=== PATIENT | male | born 1990 | race Asian ===

== ENCOUNTER 2016-07-24 11:02 | Inpatient (IN) | payer MEDICARE, MEDICAID ==
[~2016-07-24] VITALS: Ht 165.1 cm; Wt 94.9 kg
[~2016-07-24 11:02] MED LIST: DIVA500T35 PO; DIVA500T52 PO; HALO10 PO; HALO10TA15 PO; QUET200T PO; QUET300T2 PO
[2016-07-24 11:58] LABS: BASOPHILS % (AUTO) 0.4 % (0.0-2.0); EOSINOPHILS % (AUTO) 0.5 % (1.0-6.0); HEMATOCRIT 40.9 % (41-53); HEMOGLOBIN 13.5 g/dL (13.5-17.5); LYMPHOCYTES % (AUTO) 17.5 % (22.0-44.0); MEAN CORPUSCULAR HEMOGLOBIN 27.5 pg (26.0-34.0); MEAN CORPUSCULAR HGB CONC 32.9 G/dL (31.0-37.0); MEAN CORPUSCULAR VOLUME 83 fL (80-100); MONOCYTES # (AUTO) 0.9 K/uL (0.1-1.0); MONOCYTES % (AUTO) 7.7 % (2.0-9.0); NEUTROPHILS # (AUTO) 8.6 K/uL (1.8-7.7); NEUTROPHILS % (AUTO) 73.9 % (40.0-70.0); PLATELET COUNT (AUTO) 319 K/uL (150-450); RED CELL DISTRIBUTION WIDTH 13.5 % (11.5-14.5); WHITE BLOOD COUNT (AUTO) 11.6 K/uL (4.5-11.0)
[2016-07-24 12:01] LABS: ANION GAP 9 mmol/L (8-16); CALCIUM, TOTAL 9.2 mg/dL (8.8-10.5); CARBON DIOXIDE 26 mmol/L (22-29); CHLORIDE 102 mmol/L (98-107); CREATININE 0.59 mg/dL (0.60-1.30); GLOMERULAR FILTR. RATE CALC > 60 mL/min (>60); POTASSIUM 3.6 mmol/L (3.5-5.1); SODIUM SERUM 137 mmol/L (136-145); UREA NITROGEN, BLOOD 14 mg/dL (7-18)
[2016-07-24 12:08] LABS: ALANINE AMINOTRANSFERASE 21 U/L (12-78); ALBUMIN 3.8 g/dL (3.4-5.0); ASPARTATE AMINOTRANSFERASE 21 U/L (15-37); BILIRUBIN,TOTAL 0.4 mg/dL (0.1-1.0); TOTAL PROTEIN, SERUM 8.2 g/dL (6.4-8.2)
[2016-07-24] MEDS ORDERED: HALOPERIDOL LACTATE 5 MG/ML VIAL IM ONE (13:30)
[2016-07-24] MEDS ORDERED: DiphenhydrAMINE HCL 50 MG/ML VIAL IM ONE (13:30)
[2016-07-24] MEDS ORDERED: LORazepam 2 MG/ML VIAL IM ONE (13:30)
[2016-07-24 16:33] VITALS: BP 111/65
[2016-07-24] MEDS: DIVALPROEX SODIUM 500 MG ER TABLET PO SCH (17:00)
[2016-07-24] MEDS ORDERED: INFLUENZA VIRUS VACCINE QVS 2016-17 (3YR+)/PF 60 MCG/0.5 ML SYRINGE IM ONE (17:45)
[2016-07-24] MEDS: HALOPERIDOL 10 MG TABLET PO SCH (21:00)
[2016-07-24] MEDS: QUEtiapine FUMARATE 300 MG TABLET PO SCH (21:00)
[2016-07-25 06:41] VITALS: BP 134/82
[2016-07-25 08:16] VITALS: BP 98/58
[2016-07-25] MEDS: LORazepam 2 MG TABLET PO PRN ×2 (09:41→17:12)
[2016-07-25] MEDS: QUEtiapine FUMARATE 300 MG TABLET PO SCH ×2 (09:41→20:57)
[2016-07-25] MEDS: DIVALPROEX SODIUM 500 MG ER TABLET PO SCH ×2 (09:41→17:12)
[2016-07-25] MEDS: HALOPERIDOL 5 MG TABLET PO PRN ×2 (09:41→17:13)
[2016-07-25] MEDS ORDERED: IBUPROFEN 600 MG TABLET PO PRN (11:30)
[2016-07-25] MEDS ORDERED: BACITRACIN 28.4 GM OINTMENT TP PRN (11:30)
[2016-07-25] MEDS ORDERED: CloNIDine HCL 0.1 MG TABLET PO PRN (11:30)
[2016-07-25] MEDS ORDERED: ALBUTEROL SULFATE HFA 90 MCG/PUFF 8 GM INHALER IH PRN (11:30)
[2016-07-25] MEDS ORDERED: BENZOCAINE/MENTHOL LOZENGE MM PRN (11:30)
[2016-07-25] MEDS ORDERED: ONDANSETRON HCL 4 MG TABLET PO PRN (11:30)
[2016-07-25] MEDS ORDERED: ACETAMINOPHEN 325 MG TABLET PO PRN (11:30)
[2016-07-25] MEDS ORDERED: MAGNESIUM HYDROXIDE SUSPENSION 30 ML UDCUP PO PRN (11:30)
[2016-07-25] MEDS ORDERED: PETROLATUM,WHITE 71 GM JELLY TP PRN (11:30)
[2016-07-25] MEDS ORDERED: LOPERAMIDE HCL 2 MG CAPSULE PO PRN (11:30)
[2016-07-25] MEDS ORDERED: MAG HYDROX/AL HYDROX/SIMETH ES 30 ML SUSPENSION UDCUP PO PRN (11:30)
[2016-07-25 16:17] VITALS: BP 127/69
[2016-07-25] MEDS: NYSTATIN 15 GM POWDER BOTTLE TP SCH (17:21)
[2016-07-25] MEDS: HALOPERIDOL 10 MG TABLET PO SCH (20:57)
[2016-07-26 05:35] VITALS: BP 134/70
[2016-07-26 08:16] VITALS: BP 145/89
[2016-07-26 08:35] LABS: HEMOGLOBIN A1C 5.4 % (4.5-6.2)
[2016-07-26 08:55] LABS: CHOL/HDL RATIO 3.8 (4.2-7.3); THYROID STIMULATING HORMONE 1.25 uIU/mL (0.36-3.74)
[2016-07-26] MEDS: NICOTINE 21 MG/24 HOUR PATCH TD SCH (10:06)
[2016-07-26] MEDS: QUEtiapine FUMARATE 300 MG TABLET PO SCH ×2 (10:06→20:46)
[2016-07-26] MEDS: DIVALPROEX SODIUM 500 MG ER TABLET PO SCH ×2 (10:06→17:25)
[2016-07-26] MEDS: NYSTATIN 15 GM POWDER BOTTLE TP SCH ×2 (10:06→17:25)
[2016-07-26] MEDS: LORazepam 2 MG TABLET PO PRN ×2 (10:06→17:25)
[2016-07-26 16:39] VITALS: BP 112/66
[2016-07-26] MEDS: HALOPERIDOL 10 MG TABLET PO SCH (20:46)
[2016-07-27 04:49] VITALS: BP 143/75
[2016-07-27 08:16] VITALS: BP 132/71
[2016-07-27] MEDS: DIVALPROEX SODIUM 500 MG ER TABLET PO SCH ×2 (08:27→16:39)
[2016-07-27] MEDS: HALOPERIDOL 5 MG TABLET PO PRN (08:27)
[2016-07-27] MEDS: LORazepam 2 MG TABLET PO PRN ×2 (08:27→16:39)
[2016-07-27] MEDS: QUEtiapine FUMARATE 300 MG TABLET PO SCH ×2 (08:28→20:16)
[2016-07-27] MEDS: NICOTINE 21 MG/24 HOUR PATCH TD SCH (08:28)
[2016-07-27] MEDS: NYSTATIN 15 GM POWDER BOTTLE TP SCH ×2 (08:30→16:39)
[2016-07-27 16:37] VITALS: BP 134/67
[2016-07-27] MEDS: HALOPERIDOL 10 MG TABLET PO SCH (20:16)
[2016-07-27] MEDS: ZOLPIDEM TARTRATE 10 MG TABLET PO PRN (20:16)
[2016-07-28 05:12] VITALS: BP 128/75
[2016-07-28 08:15] VITALS: BP 144/80
[2016-07-28] MEDS: DIVALPROEX SODIUM 500 MG ER TABLET PO SCH ×2 (09:00→16:42)
[2016-07-28] MEDS: QUEtiapine FUMARATE 300 MG TABLET PO SCH ×2 (09:42→20:30)
[2016-07-28] MEDS: NICOTINE 21 MG/24 HOUR PATCH TD SCH (09:42)
[2016-07-28] MEDS: NYSTATIN 15 GM POWDER BOTTLE TP SCH ×2 (09:42→16:41)
[2016-07-28] MEDS: HALOPERIDOL 5 MG TABLET PO PRN (09:43)
[2016-07-28] MEDS: LORazepam 2 MG TABLET PO PRN (09:43)
[2016-07-28 16:00] VITALS: BP 132/84
[2016-07-28] MEDS: HALOPERIDOL 10 MG TABLET PO SCH (20:30)
[2016-07-29 08:16] VITALS: BP 101/54
[2016-07-29] MEDS: NYSTATIN 15 GM POWDER BOTTLE TP SCH ×2 (09:33→16:29)
[2016-07-29] MEDS: NICOTINE 21 MG/24 HOUR PATCH TD SCH (09:34)
[2016-07-29] MEDS: QUEtiapine FUMARATE 300 MG TABLET PO SCH ×2 (09:34→21:00)
[2016-07-29] MEDS: DIVALPROEX SODIUM 500 MG ER TABLET PO SCH ×2 (09:34→16:29)
[2016-07-29] MEDS: LORazepam 2 MG TABLET PO PRN ×2 (09:34→16:28)
[2016-07-29] MEDS: HALOPERIDOL 5 MG TABLET PO PRN (09:34)
[2016-07-29 16:16] VITALS: BP 121/64
[2016-07-29] MEDS: HALOPERIDOL 10 MG TABLET PO SCH (21:00)
[2016-07-30 08:16] VITALS: BP 130/88
[2016-07-30] MEDS: NYSTATIN 15 GM POWDER BOTTLE TP SCH ×2 (09:41→17:32)
[2016-07-30] MEDS: QUEtiapine FUMARATE 300 MG TABLET PO SCH ×2 (09:41→20:44)
[2016-07-30] MEDS: NICOTINE 21 MG/24 HOUR PATCH TD SCH (09:41)
[2016-07-30] MEDS: DIVALPROEX SODIUM 500 MG ER TABLET PO SCH ×2 (09:42→17:32)
[2016-07-30] MEDS: HALOPERIDOL 5 MG TABLET PO PRN (09:42)
[2016-07-30] MEDS: LORazepam 2 MG TABLET PO PRN ×2 (09:42→17:32)
[2016-07-30 16:00] VITALS: BP 136/76
[2016-07-30] MEDS: HALOPERIDOL 10 MG TABLET PO SCH (20:44)
[2016-07-30] MEDS: ZOLPIDEM TARTRATE 10 MG TABLET PO PRN (20:44)
[2016-07-31 08:28] VITALS: BP 120/69
[2016-07-31] MEDS: DIVALPROEX SODIUM 500 MG ER TABLET PO SCH ×2 (09:37→16:53)
[2016-07-31] MEDS: QUEtiapine FUMARATE 300 MG TABLET PO SCH ×2 (09:37→20:43)
[2016-07-31] MEDS: LORazepam 2 MG TABLET PO PRN (09:37)
[2016-07-31] MEDS: NICOTINE 21 MG/24 HOUR PATCH TD SCH (09:38)
[2016-07-31] MEDS: NYSTATIN 15 GM POWDER BOTTLE TP SCH ×2 (09:38→16:53)
[2016-07-31 16:15] VITALS: BP 125/71
[2016-07-31] MEDS: HALOPERIDOL 10 MG TABLET PO SCH (20:43)
[2016-08-01 07:15] VITALS: BP 114/74
[2016-08-01 08:16] VITALS: BP 114/70
[2016-08-01] MEDS: NYSTATIN 15 GM POWDER BOTTLE TP SCH ×2 (08:32→17:28)
[2016-08-01] MEDS: QUEtiapine FUMARATE 300 MG TABLET PO SCH ×2 (08:32→20:46)
[2016-08-01] MEDS: DIVALPROEX SODIUM 500 MG ER TABLET PO SCH ×2 (08:32→17:28)
[2016-08-01] MEDS: LORazepam 2 MG TABLET PO PRN ×2 (08:33→17:28)
[2016-08-01] MEDS: NICOTINE 21 MG/24 HOUR PATCH TD SCH (08:33)
[2016-08-01 16:53] VITALS: BP 134/81
[2016-08-01] MEDS: HALOPERIDOL 5 MG TABLET PO PRN (17:28)
[2016-08-01] MEDS: ZOLPIDEM TARTRATE 10 MG TABLET PO PRN (20:46)
[2016-08-01] MEDS: HALOPERIDOL 10 MG TABLET PO SCH (20:46)
[2016-08-02 07:06] VITALS: BP 136/89
[2016-08-02 08:16] VITALS: BP 107/53
[2016-08-02] MEDS: DIVALPROEX SODIUM 500 MG ER TABLET PO SCH ×2 (09:23→16:45)
[2016-08-02] MEDS: NICOTINE 21 MG/24 HOUR PATCH TD SCH (09:23)
[2016-08-02] MEDS: QUEtiapine FUMARATE 300 MG TABLET PO SCH ×2 (09:23→20:27)
[2016-08-02] MEDS: NYSTATIN 15 GM POWDER BOTTLE TP SCH ×2 (09:24→17:04)
[2016-08-02 16:19] VITALS: BP 133/77
[2016-08-02] MEDS: LORazepam 2 MG TABLET PO PRN (16:45)
[2016-08-02] MEDS: HALOPERIDOL 5 MG TABLET PO PRN (16:45)
[2016-08-02] MEDS: HALOPERIDOL 10 MG TABLET PO SCH (20:27)
[2016-08-02] MEDS: ZOLPIDEM TARTRATE 10 MG TABLET PO PRN (21:05)
[2016-08-03 07:07] VITALS: BP 136/74
[2016-08-03 08:38] VITALS: BP 114/71
[2016-08-03] MEDS: NICOTINE 21 MG/24 HOUR PATCH TD SCH (08:46)
[2016-08-03] MEDS: DIVALPROEX SODIUM 500 MG ER TABLET PO SCH ×2 (08:46→18:40)
[2016-08-03] MEDS: QUEtiapine FUMARATE 300 MG TABLET PO SCH ×2 (08:46→21:28)
[2016-08-03] MEDS: NYSTATIN 15 GM POWDER BOTTLE TP SCH ×2 (08:46→18:40)
[2016-08-03 16:00] VITALS: BP 146/78
[2016-08-03 19:07] VITALS: BP 110/76
[2016-08-03] MEDS: HALOPERIDOL 10 MG TABLET PO SCH (21:28)
[2016-08-03] MEDS: ZOLPIDEM TARTRATE 10 MG TABLET PO PRN (21:28)
[2016-08-04 06:06] VITALS: BP 115/65
[2016-08-04 08:13] VITALS: BP 112/61
[2016-08-04] MEDS: QUEtiapine FUMARATE 300 MG TABLET PO SCH ×2 (08:56→20:14)
[2016-08-04] MEDS: DIVALPROEX SODIUM 500 MG ER TABLET PO SCH ×2 (08:56→16:57)
[2016-08-04] MEDS: LORazepam 2 MG TABLET PO PRN (08:57)
[2016-08-04] MEDS: HALOPERIDOL 5 MG TABLET PO PRN (08:57)
[2016-08-04] MEDS: NICOTINE 21 MG/24 HOUR PATCH TD SCH (08:57)
[2016-08-04] MEDS: NYSTATIN 15 GM POWDER BOTTLE TP SCH ×2 (09:05→16:58)
[2016-08-04 16:18] VITALS: BP 129/72
[2016-08-04] MEDS: HALOPERIDOL 10 MG TABLET PO SCH (20:14)
[2016-08-05 06:59] VITALS: BP 122/78
[2016-08-05 08:32] VITALS: BP 137/64
[2016-08-05] MEDS: QUEtiapine FUMARATE 300 MG TABLET PO SCH ×2 (08:32→20:42)
[2016-08-05] MEDS: NICOTINE 21 MG/24 HOUR PATCH TD SCH (08:32)
[2016-08-05] MEDS: DIVALPROEX SODIUM 500 MG ER TABLET PO SCH ×2 (08:32→16:21)
[2016-08-05] MEDS: NYSTATIN 15 GM POWDER BOTTLE TP SCH ×2 (08:33→16:21)
[2016-08-05] MEDS: HALOPERIDOL 5 MG TABLET PO PRN ×2 (08:33→16:21)
[2016-08-05] MEDS: LORazepam 2 MG TABLET PO PRN ×2 (08:33→16:21)
[2016-08-05 16:00] VITALS: BP 139/88
[2016-08-05] MEDS: HALOPERIDOL 10 MG TABLET PO SCH (20:42)
[2016-08-06 06:51] VITALS: BP 110/64
[2016-08-06 08:16] VITALS: BP 106/59
[2016-08-06] MEDS: NICOTINE 21 MG/24 HOUR PATCH TD SCH (09:18)
[2016-08-06] MEDS: QUEtiapine FUMARATE 300 MG TABLET PO SCH ×2 (09:18→20:36)
[2016-08-06] MEDS: DIVALPROEX SODIUM 500 MG ER TABLET PO SCH ×2 (09:18→16:28)
[2016-08-06] MEDS: NYSTATIN 15 GM POWDER BOTTLE TP SCH ×2 (09:19→16:29)
[2016-08-06 16:00] VITALS: BP 119/63
[2016-08-06] MEDS: HALOPERIDOL 10 MG TABLET PO SCH (20:36)
[2016-08-07 08:16] VITALS: BP 123/76
[2016-08-07] MEDS: NYSTATIN 15 GM POWDER BOTTLE TP SCH ×2 (09:59→16:14)
[2016-08-07] MEDS: QUEtiapine FUMARATE 300 MG TABLET PO SCH ×2 (10:00→20:11)
[2016-08-07] MEDS: DIVALPROEX SODIUM 500 MG ER TABLET PO SCH ×2 (10:00→16:13)
[2016-08-07] MEDS: NICOTINE 21 MG/24 HOUR PATCH TD SCH (10:00)
[2016-08-07] MEDS: LORazepam 2 MG TABLET PO PRN (10:00)
[2016-08-07] MEDS: HALOPERIDOL 5 MG TABLET PO PRN (10:00)
[2016-08-07 16:00] VITALS: BP 125/73
[2016-08-07] MEDS: HALOPERIDOL 10 MG TABLET PO SCH (20:11)
[2016-08-08 00:09] VITALS: BP 101/64
[2016-08-08 08:56] VITALS: BP 119/74
[2016-08-08] MEDS: NYSTATIN 15 GM POWDER BOTTLE TP SCH (09:00)
[2016-08-08] MEDS: QUEtiapine FUMARATE 300 MG TABLET PO SCH (09:01)
[2016-08-08] MEDS: DIVALPROEX SODIUM 500 MG ER TABLET PO SCH (09:01)
[2016-08-08] MEDS: NICOTINE 21 MG/24 HOUR PATCH TD SCH (09:01)
[2016-08-08] MEDS: LORazepam 2 MG TABLET PO PRN (09:01)
[2016-08-08] MEDS ORDERED: DIVA500T52 PO (09:17)
[2016-10-23] MEDS ORDERED: QUET300T2 PO (11:37)
== END 2016-08-08 13:20 | disposition home or self-care (01) | DRG 885 ==
LOC: EMS 11:03 → MERGE 14:36 → B3A 14:36 → B2S 08-07 20:15
PROVIDERS: ADMIT Psychiatry & Neurology Psychiatry; ATTEND Psychiatry & Neurology Psychiatry
DX: F20.0 Paranoid schizophrenia (principal); R45.851 Suicidal ideations; E66.9 Obesity, unspecified; B35.3 Tinea pedis; K59.00 Constipation, unspecified; F12.90 Cannabis use, unspecified, uncomplicated; F17.200 Nicotine dependence, unspecified, uncomplicated; M54.5 Low back pain; Z68.34 Body mass index [BMI] 34.0-34.9, adult; Z28.21 Immunization not carried out because of patient refusal; Z79.899 Other long term (current) drug therapy; Z91.14 Patient's other noncompliance with medication regimen; Z72.89 Other problems related to lifestyle; Z71.6 Tobacco abuse counseling; Z71.41 Alcohol abuse counseling and surveillance of alcoholic; Z71.51 Drug abuse counseling and surveillance of drug abuser
CPT/HCPCS: 82306; 83036; 84443; 87081; 96372; 99285; A0429; G0480; J1200; J1630; J2060